=== PATIENT | female | born 1960 | race Caucasian/White ===

== ENCOUNTER 2018-04-10 18:31 | Emergency (ER) | payer MEDICARE ==
[~2018-04-10] VITALS: Ht 177.8 cm; Wt 61.2 kg
[2018-04-10] MEDS ORDERED: ZOLOFT25 MG (18:52)
[2018-04-10] MEDS ORDERED: CARDURA4 MG (18:52)
[2018-04-10] MEDS ORDERED: LISINOPRIL10 MG (18:52)
[2018-04-10] MEDS ORDERED: CARTIA XT120 M1 (18:53)
[2018-04-10 19:05] LABS: HEMATOCRIT 34.6 % (37.0-47.0); HEMOGLOBIN 11.4 gm/dL (12.0-15.0); MCH 31.8 pg (26.0-34.0); MCV 96.5 fL (80.0-100.0); NUCLEATED RBCS 0 /100WBC; PLATELET COUNT* 460 thou/uL (150-400); RBC 3.59 mil/uL (4.20-5.00); RDW-CV 17.3 % (10.5-14.5); WBC 8.8 thou/uL (4.0-11.0)
[2018-04-10 19:10] LABS: CALCIUM 9.1 mg/dL (8.5-10.1); CREATININE 1.4 mg/dL (0.6-1.3); POTASSIUM 4.4 mmol/L (3.5-5.1)
[2018-04-10 19:13] LABS: APTT 30.8 Seconds (25.0-31.3); INR 0.9; PROTIME 9.5 Seconds (9.20-11.50)
[2018-04-10 19:15] LABS: ALBUMIN 3.2 g/dL (3.4-5.0); TOTAL BILIRUBIN 0.2 mg/dL (<0.1-1.0); TOTAL PROTEIN 7.5 g/dL (6.4-8.2)
[2018-04-10 19:38] LABS: URINE BLOOD 3+ (Negative); URINE CLARITY CLOUDY; URINE COLOR RED; URINE GLUCOSE-RANDOM NEGATIVE (Negative); URINE KETONES TRACE (Negative); URINE PROTEIN 3+ (Negative)
[2018-04-10 19:40] LABS: URINE BILIRUBIN 2+ (Negative); URINE LEUKOCYTES-REFLEX 3+ (Negative); URINE NITRITE-REFLEX POSITIVE (Negative)
[2018-04-10 19:42] LABS: ICTOTEST (BILI CONFIRMATORY) Negative (Negative)
[2018-04-10 19:43] LABS: CASTS None Seen /LPF (None Seen); CRYSTALS None Seen /LPF (None Seen); SQUAMOUS NONE SEEN /LPF (0-3); URINE RBC >20 Many /HPF (0-2); URINE WBC-REFLEX >25 Many /HPF (0-5)
[2018-04-10 20:01] LABS: ABSOLUTE EOSINOPHILS 0.2 thou/uL (0.0-0.7); ABSOLUTE LYMPHOCYTES 1.3 thou/uL (0.8-5.3); ABSOLUTE MONOCYTES 0.5 thou/uL (0.0-1.2); ABSOLUTE NEUTROPHILS 6.8 thou/uL (1.6-8.1); ATYPICAL LYMPHS 5 %
[2018-04-10 20:02] LABS: ANISOCYTOSIS 1+; MACROCYTES 1+; PLATELET ESTIMATE INCREASED
[2018-04-10] MEDS ORDERED: CIPRO500 MG PO (20:43)
[2018-04-10] MEDS ORDERED: OXYBUTYNIN 5 MG5 M2 PO (20:44)
[2018-04-10 22:35] VITALS: BP 128/46
== END 2018-04-10 22:30 | disposition home or self-care (01) ==
LOC: M.ERS 18:31
PROVIDERS: Nurse Practitioner Family
DX: N39.0 Urinary tract infection, site not specified (principal); N32.89 Other specified disorders of bladder; F32.9 Major depressive disorder, single episode, unspecified; Z91.041 Radiographic dye allergy status; Z96.643 Presence of artificial hip joint, bilateral; Z98.890 Other specified postprocedural states